=== PATIENT | female | born 1975 | race Caucasian/White ===

== ENCOUNTER → 2021-12-19 | Outpatient (CLI) | payer OTHER, SELFPAY ==
[2021-12-19 17:58] LABS: Absolute Lymphocyte Count 2.13 X10^3/uL (0.83-4.51); Absolute Neutrophil Count 5.3 X10^3/uL (2.0-7.7); Basophil# 0.05 X10^3/uL; Basophil% 0.6 % (0-1); Eosinophil# 0.22 X10^3/uL; Eosinophils% 2.6 % (0-5); Hematocrit 38.4 % (37-47); Hemoglobin 11.7 g/dL (12.0-15.0); Lymphocyte # 2.13 X10^3/ul (0.83-4.51); Lymphocyte % 25.2 % (19-41); Mean Corp Hgb Conc 30.5 g/dL (32-36); Mean Corpuscular Hgb 26.2 pg (27.0-32.0); Mean Corpuscular Volume 86.1 fL (81-99); Mean Platelet Vol. 11.7 fl (6.2-12.0); Monocyte# 0.72 X10^3/uL; Monocyte% 8.5 % (0-10); NRBC Flagged by Analyzer 0 % (0-5); Neutrophil % 62.9 % (47-70); Platelet Count 249 K/mm3 (150-450); RBC Distribution Width CV 13.7 % (11.6-14.6); RBC Distribution Width SD 42.5 fl (35.1-43.9); Red Blood Count 4.46 M/mm3 (4.2-5.4); White Blood Count 8.4 K/mm3 (4.4-11.0)
[2021-12-19 18:26] LABS: Vitamin D,25 Hydroxy 32.8 ng/mL
[2021-12-19 18:40] LABS: Hemoglobin A1c 4.9 % (3.8-5.6)
[2021-12-19 23:41] LABS: Iron 28 ug/dL (50-170); Iron Binding Capacity,Total 392 ug/dL (250-450); PERCENT IRON SATURATION 7.1 % (15.0-55.0); T4 Free Direct 1.08 ng/dL (0.76-1.46); Thyroid Stim Hormone (TSH) 1.98 uIU/mL (0.358-3.74)
[2021-12-22 07:40] LABS: Anti-Thyroglobulin AB < 1.0 IU/mL (0.0-0.9); Thyroglobulin, Serum Qt. 10.3 ng/mL (1.5-38.5); Thyroid Peroxidase AB 15 IU/mL (0-34)
== END | disposition home or self-care (01) ==
LOC: MTLAB 16:40
PROVIDERS: Referring Provider Physician Assistant Medical; Visit Provider Physician Assistant Medical
DX: L80 Vitiligo (principal); L82.1 Other seborrheic keratosis; L81.4 Other melanin hyperpigmentation; D22.5 Melanocytic nevi of trunk; Z71.89 Other specified counseling; L57.8 Other skin changes due to chronic exposure to nonionizing radiation; D23.71 Other benign neoplasm of skin of right lower limb, including hip; D23.61 Other benign neoplasm of skin of right upper limb, including shoulder; D23.62 Other benign neoplasm of skin of left upper limb, including shoulder; D22.71 Melanocytic nevi of right lower limb, including hip; D48.5 Neoplasm of uncertain behavior of skin; L71.8 Other rosacea
CPT/HCPCS: 36415; 82306; 82652; 83036; 83540; 83550; 84432; 84439; 84443; 85025; 86038; 86225; 86235; 86376; 86800